=== PATIENT | male | born 1955 | race Caucasian/White ===

== ENCOUNTER → 2018-09-03 | Outpatient (CLI) | payer MEDICARE, OTHER | LOC: LAB.O 08:56 | PROVIDERS: ATTEND Internal Medicine Endocrinology, Diabetes & Metabolism | DX: E11.8 Type 2 diabetes mellitus with unspecified complications (principal); I87.2 Venous insufficiency (chronic) (peripheral); R53.83 Other fatigue; D51.9 Vitamin B12 deficiency anemia, unspecified; Z76.89 Persons encountering health services in other specified circumstances ==

== ENCOUNTER → 2018-09-20 | Outpatient (CLI) | payer OTHER | LOC: LAB.O 08:56 | PROVIDERS: ATTEND Internal Medicine Endocrinology, Diabetes & Metabolism | DX: E03.9 Hypothyroidism, unspecified (principal); E78.5 Hyperlipidemia, unspecified; E87.6 Hypokalemia; L60.0 Ingrowing nail; Z79.899 Other long term (current) drug therapy ==

== ENCOUNTER → 2018-10-26 | Outpatient (CLI) | payer OTHER | LOC: LAB.O 15:03 | PROVIDERS: ATTEND Psychiatry & Neurology Neurology | DX: Z01.812 Encounter for preprocedural laboratory examination (principal); E11.8 Type 2 diabetes mellitus with unspecified complications; I87.2 Venous insufficiency (chronic) (peripheral); R53.83 Other fatigue; Z76.89 Persons encountering health services in other specified circumstances ==

== ENCOUNTER → 2018-11-26 | Outpatient (CLI) | payer OTHER | LOC: GMAM 14:12 | PROVIDERS: ATTEND Family Medicine | DX: E03.9 Hypothyroidism, unspecified (principal) ==

== ENCOUNTER → 2018-11-30 | Outpatient (CLI) | payer OTHER | LOC: LAB.O 11:24 | PROVIDERS: ATTEND Psychiatry & Neurology Neurology | DX: G40.209 Localization-related (focal) (partial) symptomatic epilepsy and epileptic syndromes with complex partial seizures, not intractable, without status epilepticus (principal); Z79.899 Other long term (current) drug therapy ==

== ENCOUNTER → 2018-12-28 | Outpatient (CLI) | payer OTHER ==
--- NOTE | 2018-12-28 10:00 | RAD ---
EXAM DESCRIPTION: Hand,Left 3 Views CLINICAL HISTORY: 63 years Male, PAIN IN LEFT HAND AND FINGERS COMPARISON: None. FINDINGS: Three views of the left hand show no acute fracture or malalignment. A bony excrescence arising from the proximal phalanx of the left ring finger laterally likely represents an osteochondroma. No overlying soft tissue swelling or aggressive features. No radiopaque foreign body or soft tissue gas. IMPRESSION: Small bony excrescence arising from the radial aspect of the proximal phalanx of the left fourth (ring) finger, likely representing an osteochondroma. No additional abnormality to explain patient's symptoms. Electronically signed by: Ridge Burns MD 12/28/2018 9:58 AM [facility]
--- NOTE | 2018-12-28 10:20 | RAD ---
EXAM DESCRIPTION: Fingers,Left CLINICAL HISTORY: 63 years Male, PAIN IN LEFT HAND AND FINGERS COMPARISON: None. FINDINGS: Three views of the left third (middle) finger show no acute fracture or malalignment. No radiopaque foreign body or soft tissue gas. The joint spaces are fairly well-maintained. IMPRESSION: Negative exam. Electronically signed by: Ridge Burns MD 12/28/2018 10:18 AM [facility]
== END ==
LOC: RAD 08:58
PROVIDERS: ATTEND Orthopaedic Surgery
DX: M79.642 Pain in left hand (principal); M79.645 Pain in left finger(s)

== ENCOUNTER → 2019-01-03 | Outpatient (CLI) | payer OTHER ==
--- NOTE | 2019-01-03 16:48 | US ---
EXAM DESCRIPTION: Extremity,Lower Sky Arteries: Ultrasound. CLINICAL HISTORY: I73.9 COMPARISON: None. TECHNIQUE: Doppler evaluation of the bilateral lower extremity arterial flow waveforms and velocities. FINDINGS: Arterial waveforms in the right lower extremity are triphasic in the right common femoral artery, proximal right femoral artery, and right popliteal artery. Biphasic in the mid and distal right femoral artery. Biphasic in the right posterior tibial artery, right peroneal artery, and right dorsalis pedis artery. Arterial waveforms in the left lower extremity are triphasic from the left common femoral artery through the left popliteal artery. Biphasic in the left DPA and HOUSEHOLD APPLIANCE MECHANIC. Monophasic in the left peroneal artery.. Comments: Overall velocities are increased in the right lower extremity compared to the left lower extremity. Especially in the left calf vessels. IMPRESSION: Findings suggest significant atherosclerotic occlusive disease in the arterial vessels of the left calf. Consider correlation with bilateral lower extremity CTA. Electronically signed by: Rahat Ceron MD 01/03/2019 4:45 PM [facility]
--- NOTE | 2019-01-03 17:06 | US ---
EXAM DESCRIPTION: Carotid Duplex: ULTRASOUND. CLINICAL HISTORY: 63 years Male I65.23 COMPARISON: Bilateral lower extremity duplex ultrasound arterial evaluation. TECHNIQUE: Transcutaneous scanning utilizing galicia-scale and Doppler modes to evaluate the bilateral carotid systems and vertebral arteries. Percentage of diameter of stenosis or no stenosis recorded will be based upon NASCET criteria. FINDINGS: Peak systolic/end diastolic (CM-Sec) CCA Right 85/13 Left 98/24. ICA Right proximal 79/19, distal 65/21. Left proximal 63/23, mid 76/32. Vertebral Right 42/11 Left 41/13. ECA (PS Only) Right 134 left 91. ICA/CCA peak systolic ratio: Right 0.9 Left 0.8 ICA/CCA end diastolic ratio: Right 1.5 Left 1.3 Vertebral arteries: antegrade flow. Comments: Atherosclerotic calcification in the right CCA bulb. Area stenosis 38%, diameter stenosis 28%. Calcification also in the left common carotid bifurcation. Color turbulent flow proximal left ICA with spectral broadening. Spectral broadening in the proximal right ICA. IMPRESSION: 1. Doppler evaluation of the bilateral carotid systems and vertebral arteries shows no hemodynamically significant stenoses. 2. No significant amount of plaque seen in the carotid arteries bilaterally. Bilateral vertebral arteries showed antegrade-cephalad flow. Electronically signed by: Rahat Ceron MD 01/03/2019 5:02 PM FINANCIAL SALES ASSISTANT
== END ==
LOC: US 09:46
PROVIDERS: ATTEND Family Medicine
DX: Z01.818 Encounter for other preprocedural examination (principal); I65.23 Occlusion and stenosis of bilateral carotid arteries; I73.9 Peripheral vascular disease, unspecified

== ENCOUNTER 2019-02-22 05:33 | Day surgery (SDC) | payer MEDICARE, OTHER ==
--- NOTE | 2019-02-18 10:03 | HP ---
CHIEF COMPLAINT: Left third and fifth digit triggering. HISTORY OF PRESENT ILLNESS: Mr. Quan is a 63-year-old male with a history of triggering at the left third and fifth digits. He has had ongoing symptoms which have caused pain and difficulty with activities. Because of his symptoms and difficulties, he has requested operative intervention. After discussing the risks, benefits and alternatives to that, he has given informed consent for trigger finger release. PAST SURGICAL HISTORY: 1. Rotator cuff repair. 2. Bilateral total knee arthroplasty. 3. Carpal tunnel release. 4. Trigger finger release. MEDICATIONS: 1. Metformin. 2. Metolazone. 3. Gabapentin. 4. Phenytoin. 5. Potassium. 6. Losartan. 7. Jardiance. 8. Levothyroxine. 9. Atorvastatin. 10. Amlodipine. ALLERGIES: NO KNOWN DRUG ALLERGIES. CODE STATUS: Full code. IMMUNIZATIONS: Up to date. FAMILY HISTORY: None pertinent to today's complaint. SOCIAL HISTORY: The patient does not drink or use any illicit drugs. REVIEW OF SYSTEMS: Negative except as indicated in the History of Present Illness. PHYSICAL EXAMINATION: VITAL SIGNS: Blood pressure 145/83. Pulse 69. Height 5'7". Weight 231 pounds. MENTAL STATUS: The patient is awake, alert, and is able to give a good history and participate in the physical. The patient is oriented to person, place and time. SKIN: Normal tone and turgor. MUSCULOSKELETAL: He is very tender to palpation over the third and fifth A1 pulleys. He has intact sensation throughout the extremity and they are warm and well perfused. He has palpable clicking at the A1 pulleys. He has full bandoleer straightener stamper strength. ASSESSMENT: 1. Trigger finger. PLAN: The plan at this point is A1 monae release. We have discussed the risks, benefits, and alternatives to that and the patient has given informed consent. #[id number] MTDD
[2019-02-22] MEDS ORDERED: LACTATED RINGERS 1,000 ML ONE (05:40)
[2019-02-22] MEDS ORDERED: SODIUM CHL 0.9% 100ML MINI-BAG 100 ML IVPB ONE (05:40)
[2019-02-22] MEDS ORDERED: ceFAZolin SODIUM 1 GM VIAL ONE (05:40)
[2019-02-22] MEDS ORDERED: LIDOCAINE 1% 10 ML VIAL INJ ONE ×2 (06:41→10:00)
[2019-02-22] MEDS ORDERED: BUPIVACAINE 0.25% INJ 30 ML VIAL INJ ONE (06:41)
[2019-02-22] MEDS ORDERED: fentaNYL CITRATE INJ 50 MCG/ML AMP ONE (06:44)
[2019-02-22] MEDS ORDERED: MIDAZOLAM INJ 2 MG/2 ML VIAL ONE (06:44)
[2019-02-22] MEDS: ceFAZolin SODIUM 1 GM VIAL ONE ×2 (07:30→07:46)
[2019-02-22] MEDS: VANCOMYCIN HCL INJ 1,000 MG VIAL IVPB ONE ×2 (07:30→07:46)
[2019-02-22 09:02] VITALS: BP 175/88; TEMP 96.7; O2SAT 96
[2019-02-22] MEDS ORDERED: PROPOFOL 200 MG/20 ML VIAL IV ONE (10:00)
--- NOTE | 2019-03-01 08:27 | OP ---
DATE OF PROCEDURE: 02/22/19 PREOPERATIVE DIAGNOSIS: 1. Trigger finger, left third and fourth digits. POSTOPERATIVE DIAGNOSIS: 1. Trigger finger, left third and fourth digits. PROCEDURE: 1. Left third and fourth digit A1 monae release. SURGEON: Chuy Dial MD. EARLY CHILDHOOD DIRECTOR: Rahat Chauhan CST, SA-C. ANESTHESIA: Local with sedation. COMPLICATIONS: None. FINDINGS: Triggering at the A1 monae. INDICATION: Mr. Burgess has a history of triggering at the A1 monae on both digits. It is causing him difficulty with activities. Because of his ongoing symptoms, he has requested operative intervention. After discussing the risks, benefits and alternatives to operative therapy, the patient has given informed consent for trigger finger release. PROCEDURE: The patient was brought to the Operating Room and placed in the supine position. Sedation was administered and local anesthetic was injected into the operative area. Following injection, the arm was sterilely prepped and draped. A transverse incision was made directly overlying the A1 monae of the triggering digit and blunt dissection was carried down to the monae while protecting the digital nerves. After identification of the monae, the monae was transected and a Brandon elevator was passed both proximally and distally to ensure complete release. The finger was flexed and extended and there was no evidence of locking or clicking. The wound was thoroughly irrigated and closed with Nylon suture. Attention was focused on the fourth digit and the procedure was repeated in its entirety through a transverse incision over the A1 monae. A Brandon elevator was passed both proximally and distally to ensure complete release of the monae. After release was confirmed, the wound was irrigated and closed with Nylon suture. Sterile dressings were placed and the patient was taken to the Day Surgery Unit. POSTOPERATIVE PLAN: The patient has been encouraged to do range of motion of the digits. #[id number] MTDD
== END 2019-02-22 08:55 | disposition home or self-care (01) ==
LOC: AMB 05:33
PROVIDERS: ATTEND Orthopaedic Surgery
DX: M65.332 Trigger finger, left middle finger (principal); M65.342 Trigger finger, left ring finger; I10 Essential (primary) hypertension; E11.9 Type 2 diabetes mellitus without complications; E66.9 Obesity, unspecified; Z68.35 Body mass index [BMI] 35.0-35.9, adult; Z87.891 Personal history of nicotine dependence; Z96.653 Presence of artificial knee joint, bilateral; Z79.84 Long term (current) use of oral hypoglycemic drugs; Z79.899 Other long term (current) drug therapy
CPT/HCPCS: 01810; 26055; 80307; 82948; J0690; J2250; J3010; J3370; J3490; J7050; J7120

== ENCOUNTER → 2019-03-13 | Outpatient (CLI) | payer MEDICARE, OTHER ==
--- NOTE | 2019-03-13 14:46 | CT ---
EXAM DESCRIPTION: CTA Runoff Abdominal and pelvic CT angiogram without and following administration of IV contrast. CLINICAL HISTORY: 63 years, Male, PVD COMPARISON: Ultrasound of the lower extremities dated January 03, 2019. Technique: Abdominal and pelvic CT angiogram was obtained with administration of IV contrast from above the kidneys to below the ankle level. 3-D and MIP reconstructions were performed in an independent work station and sent to PACS for analysis. This exam was performed according to our departmental dose-optimization program, which includes automated exposure control, adjustment of the mA and/or kV according to patient size and/or use of iterative reconstruction technique. Findings: CT angiogram: Suprarenal abdominal aorta and visualized portions of the thoracic aorta is unremarkable. Mild atherosclerotic changes are seen at the origin of the celiac trunk. The celiac trunk, SMA and bilateral renal arteries are widely patent without any hemodynamically significant stenosis. The infrarenal abdominal aorta shows demonstrates moderate atherosclerotic calcifications, otherwise appears unremarkable. The common and external iliac arteries are normal in caliber. Both internal iliac arteries are normal in caliber. Anterior and posterior divisions of the internal iliac arteries show moderate atherosclerotic disease bilaterally. Bilateral external iliac arteries are widely patent with no significant stenosis. Left leg: The left common femoral artery, superficial femoral artery, profunda femoris artery, and popliteal artery are widely patent with no hemodynamically significant stenosis up to the trifurcation below the knee joint. Moderate atherosclerotic calcifications noted throughout the course of SFA with multiple short segment focal areas of narrowing in the proximal and mid SFA with no hemodynamically significant stenosis. The evaluation of distal popliteal artery is limited secondary to streak artifact from metallic hardware of the left knee joint. Two-vessel runoff is noted below the knee joint. Nonopacification of the left anterior tibial artery throughout the course consistent with chronic total occlusion with moderate atherosclerotic disease. The peroneal and posterior tibial arteries are opacified up to the ankle level. Faint opacification of the dorsalis pedis artery is noted likely from reconstitution. Right leg: The right common femoral artery, SFA, profunda femoris artery and popliteal artery are widely patent with no hemodynamically significant stenosis up to the trifurcation level below the knee joint. Moderate atherosclerotic calcifications noted throughout the course of SFA with multiple short segment focal areas of narrowing noted in the proximal and mid SFA with no hemodynamically significant stenosis. The evaluation of distal popliteal artery is limited secondary to streak artifact from metallic hardware of right knee joint. 2 vessel runoff is noted below the knee joint. Only a short segment proximal anterior tibial artery shows opacification. The rest of the entire course of the anterior tibial artery demonstrates chronic total occlusion. The peroneal artery and posterior tibial arteries are well-opacified throughout the course. The dorsalis pedis artery shows opacification likely from reconstitution. CT abdomen and pelvis: The visualized portions of the liver appear grossly unremarkable. The gallbladder, visualized spleen, pancreas and both adrenal glands appear grossly unremarkable. Both kidneys enhance symmetrically with no evidence of hydronephrosis, nephrolithiasis, hydroureter are perinephric stranding. The visualized portions of the stomach, small and large bowel loops appear grossly unremarkable with no abnormal dilatation or wall thickening. Scattered diverticula are noted throughout the colon with no evidence of acute diverticulitis. The appendix appears grossly unremarkable. No free intraperitoneal air or fluid. Few prominent abdominal retroperitoneal lymph nodes likely reactive. The urinary bladder is significantly distended, however appears grossly unremarkable. The prostate is mildly enlarged measuring up to 4.5 cm in transverse dimension. Enlarged bilateral inguinal lymph nodes noted measuring up to 1.2 cm likely reactive. No free fluid in the pelvis. Review of the bone windows demonstrate no acute osseous abnormality. Impression: 1. No evidence of significant inflow disease. 2. 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 Only a proximal short segment right anterior tibial artery is opacified. The dorsalis pedis artery demonstrates good opacification likely from reconstitution. 3. 2 vessel runoff below the left knee joint with chronic total occlusion of entire left anterior tibial artery. Faint opacification of dorsalis pedis artery likely from reconstitution. 4. Multiple focal short segment stenosis involving the right and left SFA with no hemodynamically significant narrowing. 5. Diverticulosis with no evidence of acute diverticulitis. 6. Mild prostatomegaly. Electronically signed by: Elieser Childress MD 03/13/2019 2:44 PM CDT
== END ==
LOC: CT 10:01
PROVIDERS: ATTEND Family Medicine
DX: E87.6 Hypokalemia (principal); I70.203 Unspecified atherosclerosis of native arteries of extremities, bilateral legs; I70.92 Chronic total occlusion of artery of the extremities; E11.21 Type 2 diabetes mellitus with diabetic nephropathy; K57.30 Diverticulosis of large intestine without perforation or abscess without bleeding; N40.0 Benign prostatic hyperplasia without lower urinary tract symptoms

== ENCOUNTER → 2019-03-15 | Outpatient (CLI) | payer MEDICARE, OTHER | LOC: GMAM 14:30 | PROVIDERS: ATTEND Family Medicine | DX: R53.83 Other fatigue (principal); E55.9 Vitamin D deficiency, unspecified; E11.9 Type 2 diabetes mellitus without complications; I10 Essential (primary) hypertension ==

== ENCOUNTER → 2019-03-20 | Outpatient (CLI) | payer MEDICARE, OTHER | LOC: GMAM 16:51 | PROVIDERS: ATTEND Family Medicine | DX: R94.5 Abnormal results of liver function studies (principal); Z79.899 Other long term (current) drug therapy ==

== ENCOUNTER → 2019-06-18 | Outpatient (CLI) | payer MEDICARE, OTHER | LOC: LAB.O 11:52 | PROVIDERS: ATTEND Physician Assistant | DX: R19.7 Diarrhea, unspecified (principal) ==

== ENCOUNTER → 2019-08-28 | Outpatient (CLI) | payer MEDICARE, OTHER | LOC: GMAM 11:00 | PROVIDERS: ATTEND Family Medicine | DX: R77.0 Abnormality of albumin (principal); Z79.899 Other long term (current) drug therapy ==

== ENCOUNTER → 2020-06-02 | Outpatient (CLI) | payer MEDICARE, OTHER | LOC: GMAM 16:56 | PROVIDERS: ATTEND Family Medicine | DX: E03.9 Hypothyroidism, unspecified (principal); E55.9 Vitamin D deficiency, unspecified; E11.9 Type 2 diabetes mellitus without complications; R10.0 Acute abdomen ==

== ENCOUNTER → 2020-10-15 | Outpatient (CLI) | payer MEDICARE, OTHER | LOC: GMAM 14:23 | PROVIDERS: ATTEND Family Medicine | DX: E03.9 Hypothyroidism, unspecified (principal); I10 Essential (primary) hypertension; E11.21 Type 2 diabetes mellitus with diabetic nephropathy; E55.9 Vitamin D deficiency, unspecified; Z12.5 Encounter for screening for malignant neoplasm of prostate; Z79.899 Other long term (current) drug therapy | CPT/HCPCS: 80185; 82306; 84439; 84443; G0103 ==

== ENCOUNTER → 2020-12-08 | Outpatient (CLI) | payer MEDICARE, OTHER | LOC: GMAM 14:02 | PROVIDERS: ATTEND Family Medicine | DX: M25.561 Pain in right knee (principal); I10 Essential (primary) hypertension; Z79.899 Other long term (current) drug therapy; E83.42 Hypomagnesemia ==

== ENCOUNTER → 2020-12-11 | Outpatient (CLI) | payer MEDICARE, OTHER ==
--- NOTE | 2020-12-11 17:29 | CT ---
EXAM DESCRIPTION: CT head without contrast CLINICAL HISTORY: SYNCOPE AND COLLAPSE COMPARISON: None available TECHNIQUE: Noncontrast head CT was performed with routine protocol. FINDINGS: Normal galicia-white matter differentiation. Ventricles and sulci are normal for age. No focal edema or shift of the midline. No sulcal effacement. Small focal high density in the central white matter of the posterior centrum semiovale measures 7.5 mm in diameter. Differential considerations would include small focal parenchymal hemorrhage versus dystrophic calcification (cysticercosis) or vascular malformation. Primary or metastatic malignancy is possible but thought less likely. No old CT for comparison. MRI is recommended for further evaluation without and with gadolinium. Normal orbital contents. Basilar cisterns appear clear. Intact calvarium with no fracture or lytic lesion. Normal aeration of tympanic cavities and mastoid air cells. No fluid levels in the paranasal sinuses. Skull base appears intact. Symmetrical internal auditory canals. Coronal and sagittal images are reformatted. 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 No subdural hematoma or subarachnoid hemorrhage. On the sagittal images, the high density white matter lesion has a peripheral higher density than centrally with a ringlike configuration. I called the above results to the doctor answering machine system at the [facility] (Dr. Akil Cancino) and left message at the time of image interpretation 5:25 PM on 12/11/2020. IMPRESSION: Focal high density white matter lesion in the posterior right centrum semiovale with differential considerations and recommendations for further evaluation discussed above. This exam was performed according to our departmental dose-optimization program, which includes automated exposure control, adjustment of the mA and/or kV according to patient size and/or use of iterative reconstruction technique. Total DLP equals 859.97 mGycm. Electronically signed by: Kole Perry MD 12/11/2020 5:27 PM [facility]
== END ==
LOC: CT 07:36
PROVIDERS: ATTEND Family Medicine
DX: R55 Syncope and collapse (principal); I51.7 Cardiomegaly; R90.82 White matter disease, unspecified

== ENCOUNTER → 2020-12-17 | Outpatient (CLI) | payer MEDICARE, OTHER ==
--- NOTE | 2020-12-18 10:41 | MRI ---
EXAM DESCRIPTION: MRI left knee CLINICAL HISTORY: Left knee pain. Total knee arthroplasty. Fall injury 2 weeks ago COMPARISON: None. TECHNIQUE: Multiplanar, multisequence MR images of the left knee FINDINGS: Significant artifact related to total knee arthroplasty. No periprosthetic fracture or evidence of osteolysis. Sensitivity to edema precluded because of the severity of the artifact Patellar and quadriceps tendons are intact. No large joint effusion. No diagnostic acute abnormality of the muscles around the knee A small remote bone infarct in the distal femoral metaphysis measures about 1.7 cm in greatest dimension IMPRESSION: No diagnostic acute abnormality. Total knee arthroplasty artifact significantly limits evaluation. Consider correlation with CT Electronically signed by: Akil Stewart MD 12/18/2020 10:40 AM [facility]
--- NOTE | 2020-12-18 10:57 | MRI ---
EXAM DESCRIPTION: MRI brain CLINICAL HISTORY: Migraine headaches COMPARISON: CT dated 12/11/2020 TECHNIQUE: Multi planar, multi sequence MRI evaluation of the brain FINDINGS: Focal high density on CT. This is located in the medial right parietal lobe measuring approximately 10 mm. Ovoid with peripheral low signal intensity consistent with hemosiderin. Central intermediate signal. Consistent with cavernoma or remote benign hemorrhage from other etiology. No underlying mass lesion. No other signal abnormality throughout the brain No acute intracranial hemorrhage, infarction, or neoplastic mass lesion. Normal galicia-white matter differentiation. No restricted diffusion Ventricles are normal in size and configuration Normal flow voids are present in the major intracranial arteries and dural venous sinuses No abnormality is seen along the course of the cranial nerves. Normal appearance of the temporal bones Orbits are grossly normal Acute on chronic left maxillary sinusitis with moderate volume of fluid. Circumferential mucosal thickening. Mucosal thickening in the inferior right maxillary sinus with 1.4 cm mucous retention cyst. Mucosal thickening throughout the ethmoid, sphenoid and right frontal sinuses IMPRESSION: No acute abnormality of the brain. Deep right parietal signal abnormality consistent with remote blood degradation . Consistent with cavernoma or other etiology of remote benign hemorrhage Electronically signed by: Akil Stewart MD 12/18/2020 10:56 AM SOLUTION DESIGN AND ANALYSIS MANAGER
== END ==
LOC: MRI 12:43
PROVIDERS: ATTEND Family Medicine
DX: G40.209 Localization-related (focal) (partial) symptomatic epilepsy and epileptic syndromes with complex partial seizures, not intractable, without status epilepticus (principal); G40.89 Other seizures; G43.019 Migraine without aura, intractable, without status migrainosus; G93.9 Disorder of brain, unspecified; M25.562 Pain in left knee; Z96.652 Presence of left artificial knee joint

== ENCOUNTER → 2020-12-24 | Outpatient (CLI) | payer MEDICARE, OTHER ==
--- NOTE | 2020-12-24 12:44 | RAD ---
EXAM DESCRIPTION: Pelvis, 2 radiographs CLINICAL HISTORY: Left hip pain FINDINGS/ IMPRESSION: Normal mineralization. No fracture of the proximal femora or pelvis Multiple large enthesophytes at tendon attachments. 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 No advanced arthrosis of the hip joints. Acetabular osteophyte predisposes to femoroacetabular impingement Electronically signed by: Akil Stewart MD 12/24/2020 12:42 PM [facility]
--- NOTE | 2020-12-24 12:49 | RAD ---
EXAM DESCRIPTION: Knee,Left Complete CLINICAL HISTORY: 65 years Male, pain in left knee COMPARISON: December 17, 2020 Findings: Four view(s)/radiograph(s) Left total knee arthroplasty. No hardware complication. No acute fracture or dislocation. No focal soft tissue swelling. No significant joint effusion. Osteopenia. IMPRESSION: No acute osseous abnormality in the left knee. Electronically signed by: Gregorio Shah MD 12/24/2020 12:47 PM [facility]
== END ==
LOC: RAD 09:15
PROVIDERS: ATTEND Orthopaedic Surgery
DX: M47.898 Other spondylosis, sacral and sacrococcygeal region (principal); M25.752 Osteophyte, left hip; M77.9 Enthesopathy, unspecified